=== PATIENT | male | born 1980 ===

== ENCOUNTER → 2019-02-12 20:46 | Outpatient (ROUT) | payer OTHER, SELFPAY ==
[2019-02-15 15:17] LABS: RPR Screen Nonreactive (Nonreactive)
== END ==
PROVIDERS: Visit Provider Family Medicine
DX: Z11.1 Encounter for screening for respiratory tuberculosis (principal); Z11.3 Encounter for screening for infections with a predominantly sexual mode of transmission
CPT/HCPCS: 36415; 86480; 86592; 87591